=== PATIENT | female | born 1940 | race African-American/Black ===

== ENCOUNTER 2016-05-16 14:48 | Emergency (ER) | payer MEDICARE, OTHER ==
[~2016-05-16] VITALS: Ht 147.3 cm; Wt 99.8 kg
[~2016-05-16 14:48] MED LIST: ACET650T60 PO; ARIP30TA PO; ARIP5TAB6 PO; ASPI-482 PO; ASPI81TA44 PO; BENZ1TAB5 PO; CIPR250T30 PO; DOXY100T PO; FLUT1DIS3 IH; GABA-586 PO; GABA300S PO; HYDR-2666 PO; INSU100I13 SQ; INSU100I17 SQ; INSU100I27 SQ; INSU100V31 SQ; INSU100V8 SQ; LEVO750T31 PO; LISI10TA2 PO; LISI40TA PO; LURA40TA PO; PANT40TA3 PO; PANT40VI IV; PARO20TA2 PO; PARO20TA55 PO; POLY17PO5 PO; POLY500P14 MC; PRED20TA PO; PROAIR HFA8.5 GM IH; PROP40TA PO; WARF5TAB PO
--- NOTE | 2016-05-16 15:21 | PHYS DOC ---
Past Medical History Past Medical History: Arthritis, CHF, COPD, Depression, Diabetes-Type II, Hypertension, [place], Schizophrenia, TIA Additional Past Medical Histor: Heart murmur, tremors for the past 3+ years Past Surgical History: Hysterectomy Additional Past Surgical Histo: Hernia, cataract surgery, arm/elbow surgery Alcohol Use: Occasionally Drug Use: None Adult General Chief Complaint Chief Complaint: MECHANICAL FALL HPI HPI Patient is a 76 year old female who presents s/p fall. She comes via EMS from [facility]. Patient reports she was on her motorized scooter when she lost her balance and fell off, hitting her head. Unsure if LOC. She presents now with mild headache. Patient denies any other pain. She has not taken anything for pain as of yet. No other acute complaints. Review of Systems Review of Systems Constitutional: Denies fever or chills Respiratory: Denies cough or shortness of breath Cardiovascular: Denies chest pain GI: Denies abdominal pain, nausea, vomiting, or diarrhea Musculoskeletal: Denies back pain or joint pain Neurologic: Mild headache. Denies focal weakness or sensory changes Current Medications Current Medications Current Medications Medications (Trade) Dose Ordered Sig/Nithin Start Time Stop Time Status Last Admin Dose Admin Acetaminophen (Tylenol) 1,000 mg 1X ONCE 05/16/16 15:45 05/16/16 15:46 DC Allergies Allergies Allergies Coded Allergies Type Severity Reaction Last Updated Verified Penicillins Allergy Intermediate 05/06/15 Yes Tetanus Vaccines and Toxoid Allergy Intermediate 05/06/15 Yes ampicillin Allergy Intermediate Rash 05/06/15 Yes ibuprofen Allergy Intermediate 05/06/15 Yes Physical Exam Physical Exam Constitutional: Well developed, well nourished, no acute distress, non-toxic appearance HENT: Normocephalic, atraumatic, bilateral external ears normal Eyes: PERRL, EOMI, conjunctiva normal, no discharge Neck: Normal range of motion, no stridor. No midline TTP, no stepoff or deformity Cardiovascular: Heart rate normal, regular rhythm, no murmur Lungs & Thorax: Bilateral breath sounds clear to auscultation Abdomen: Bowel sounds normal, soft, non-distended, no TTP Skin: Warm, dry, no erythema, no rash Back: No midline tenderness, no stepoff or deformity Extremities: No obvious deformity, no edema Neurologic: Alert and oriented to person and place, GCS 15, CN II-XII grossly intact, strength symmetrical throughout, sensation to light touch intact throughout Current Patient Data Vital Signs Vital Signs Date Time Temp Pulse Resp B/P Pulse Ox O2 Delivery O2 Flow Rate FiO2 05/16/16 14:55 98.9 72 16 123/56 97 Room Air 98.9 EKG EKG EKG (my read): sinus rhythm, rate 71, borderline LAD, intervals wnl, no acute ischemic changes Radiology/Procedures Radiology/Procedures CT head/c-spine: IMPRESSION: 1. No acute intracranial finding or evidence of acute cervical spine trauma. 2. Scattered areas of hypodensity within the cerebral white matter, likely due to chronic small vessel disease. 3. Multilevel degenerative change of the cervical spine, swelling in stenosis as described above. 4. Cervical kyphosis and multilevel listhesis, degenerative in etiology. Course & Med Decision Making Course & Med Decision Making Pertinent Labs and Imaging studies reviewed. (See chart for details) Patient is 76 year old female who presents s/p apparent mechanical fall. No obvious serious injury on exam. Given age and c/o headache, will obtain CT head and c-spine to r/o serious injury. Dose of acetaminophen ordered for pain control. Imaging results as above, no acute injury noted. Discussed results with patient, who is feeling well at this time. Will discharge back to assisted living at this time with instructions for follow up and return precautions. Dragon Disclaimer Dragon Disclaimer This electronic medical record was generated, in whole or in part, using a voice recognition dictation system. Departure Departure Impression: Primary Impression: Fall from motorized mobility scooter Disposition: HOME, SELF-CARE Condition: STABLE Referrals: ELIE ARIZMENDI (PCP) Patient Instructions: Fall Prevention and Home Safety Additional Instructions: Thank you for allowing us to provide care today in the Emergency Department. Schedule a follow up appointment with your primary care doctor. Return promptly to the Emergency Department if you develop any new or concerning symptoms. STEFANIA MINER MD May 16, 2016 15:21
[2016-05-16] MEDS ORDERED: ACETAMINOPHEN 500 MG TABLET PO ONE (15:45)
--- NOTE | 2016-05-16 16:25 | RAD ---
EXAM: Head and cervical spine CT without contrast. HISTORY: Fall. TECHNIQUE: Computed tomographic images of the head and cervical spine were obtained without contrast. One or more of the following individualized dose reduction techniques were utilized for this examination: 1. Automated exposure control. 2. Adjustment of the mA and/or kV according to patient size. 3. Use of iterative reconstruction technique. COMPARISON: 03/18/2014. FINDINGS: The graft head: There is no acute or subacute hemorrhage. There is no mass effect or midline shift. There is no hydrocephalus. There are scattered areas of hypodensity within the cerebral white matter, likely due to chronic small vessel disease. There is cerebral and cerebellar atrophy. The orbits and mastoid air cells are unremarkable. There is mild paranasal sinus thickening. No calvarial lesion is seen. Cervical spine: There is moderate cervical kyphosis and slight listhesis at multiple levels. The vertebral bodies are normal in height. There is degenerative endplate remodeling with disc space narrowing predominantly at C5-C6. At C2-C3, there is a disc bulge. There is mild bilateral facet arthropathy. There is no stenosis. At C3-C4, there is a disc bulge and endplate remodeling. There is mild facet arthropathy. There is mild left foraminal stenosis. At C4-C5, there is a posterior disc protrusion superimposed on a disc bulge. There is mild facet arthropathy. There is no stenosis. At C5-C6, there is a posterior central disc osteophyte complex and posterior disc bulge and endplate remodeling. There is no stenosis. At C6-C7, there is a disc bulge and endplate bowing. There is no stenosis. IMPRESSION: 1. No acute intracranial finding or evidence of acute cervical spine trauma. 2. Scattered areas of hypodensity within the cerebral white matter, likely due to chronic small vessel disease. 3. Multilevel degenerative change of the cervical spine, swelling in stenosis as described above. 4. Cervical kyphosis and multilevel listhesis, degenerative in etiology.
[2016-05-16 17:00] VITALS: BP 111/70
--- NOTE | 2016-05-17 06:34 | EKG ---
[facility] [address] [place] [address] Test Date: 2016-05-16 Test Time: 15:28:08 Pat Name: HOMAR CLAUDIO Department: Room: Gender: F [employer]: : 1940 Requested By: STEFANIA MINER Order Number: [id number] Reading MD: Ismael Sibley Measurements Intervals [place] Rate: 71 P: 30 AR: 200 QRS: 4 QRSD: 66 T: 28 QT: 404 QTc: 439 Interpretive Statements SINUS RHYTHM Electronically Signed On 05-17-2016 10:43:39 CRM ADMINISTRATOR by Ismael Sibley
== END 2016-05-16 17:08 | disposition home or self-care (01) ==
LOC: ER 14:48
DX: R51 Headache (principal); M19.90 Unspecified osteoarthritis, unspecified site; I11.0 Hypertensive heart disease with heart failure; I50.9 Heart failure, unspecified; I25.2 Old myocardial infarction; E11.9 Type 2 diabetes mellitus without complications; J44.9 Chronic obstructive pulmonary disease, unspecified; F32.9 Major depressive disorder, single episode, unspecified; F20.9 Schizophrenia, unspecified; Z88.0 Allergy status to penicillin; Z86.73 Personal history of transient ischemic attack (TIA), and cerebral infarction without residual deficits; Z90.710 Acquired absence of both cervix and uterus; Z98.49 Cataract extraction status, unspecified eye; Z88.1 Allergy status to other antibiotic agents; Z88.7 Allergy status to serum and vaccine; Z88.8 Allergy status to other drugs, medicaments and biological substances; V00.831A Fall from motorized mobility scooter, initial encounter; Y93.89 Activity, other specified; Y92.89 Other specified places as the place of occurrence of the external cause; Y99.8 Other external cause status
CPT/HCPCS: 70450; 72125; 93005; 99284-25

== ENCOUNTER 2016-05-17 13:54 | Emergency (ER) | payer MEDICARE, OTHER ==
--- NOTE | 2016-05-17 15:32 | ED.ADGEN ---
Past Medical History Past Medical History: Arthritis, CHF, COPD, Depression, Diabetes-Type II, Hypertension, [place], Schizophrenia, TIA Additional Past Medical Histor: Heart murmur, tremors for the past 3+ years Past Surgical History: Hysterectomy Additional Past Surgical Histo: Hernia, cataract surgery, arm/elbow surgery Alcohol Use: Occasionally Drug Use: None Adult General Chief Complaint Chief Complaint: MECHANICAL FALL HPI HPI Patient is a 76 year old female sent to the emergency department by ambulance for left wrist pain and a second fall in as many days. Patient denies any other complaints but states that she does feel like she is searching a bit for her words. She states that she can remember the fall from today but does not know why she fell. Report from the long-term is that this patient is usually very alert and interactive. Patient reports that she has been wearing her oxygen and taken her medications as directed. Review of Systems Review of Systems Constitutional: Denies fever or chills. [] Eyes: Denies change in visual acuity. [] HENT: Denies nasal congestion or sore throat. [] Respiratory: Denies cough or shortness of breath. [] Cardiovascular: Denies chest pain or edema. [] GI: Denies abdominal pain, nausea, vomiting, bloody stools or diarrhea. [] : Denies dysuria. [] Musculoskeletal: Denies back pain or joint pain. [] Integument: Denies rash. [] Neurologic: Denies headache, focal weakness or sensory changes. [] Endocrine: Denies polyuria or polydipsia. [] Lymphatic: Denies swollen glands. [] Psychiatric: Denies depression or anxiety. [] Allergies Allergies Allergies Coded Allergies Type Severity Reaction Last Updated Verified Penicillins Allergy Intermediate 05/06/15 Yes Tetanus Vaccines and Toxoid Allergy Intermediate 05/06/15 Yes ampicillin Allergy Intermediate Rash 05/06/15 Yes ibuprofen Allergy Intermediate 05/06/15 Yes Physical Exam Physical Exam Constitutional: Well developed, well nourished, no acute distress, non-toxic appearance. [] HENT: Normocephalic, atraumatic, bilateral external ears normal, oropharynx moist, no oral exudates, nose normal. [] Eyes: PERRLA, EOMI, conjunctiva normal, no discharge. [] Neck: Normal range of motion, no tenderness, supple, no stridor. [] Cardiovascular:Heart rate regular rhythm, no murmur [] Lungs & Thorax: Bilateral breath sounds clear to auscultation [] Abdomen: Bowel sounds normal, soft, no tenderness, no masses, no pulsatile masses. [] Skin: Warm, dry, no erythema, no rash. [] Back: No tenderness, no CVA tenderness. [] Extremities: Left distal wrist is tender to palpation with edema and deformity, neurovascularly intact [] Neurologic: Alert and oriented X 3, normal motor function, normal sensory function, no focal deficits noted. [] Psychologic: Affect normal, judgement normal, mood normal. [] Current Patient Data Vital Signs Vital Signs Date Time Temp Pulse Resp B/P Pulse Ox O2 Delivery O2 Flow Rate FiO2 05/17/16 19:15 80 18 136/58 98 Nasal Cannula 2 05/17/16 13:54 98.9 98.9 Lab Values Laboratory Tests Test 05/17/16 15:28 05/17/16 16:11 05/17/16 16:40 O2 Saturation 91% (92-99) L Arterial Blood pH 7.32 (7.35-7.45) L Arterial Blood pCO2 at Patient Temp 49mmHg (35-46) H Arterial Blood pO2 at Patient Temp 71mmHg (65-108) Arterial Blood HCO3 25mmol/L (21-28) Arterial Blood Base Excess -2mmol/L (-3-3) FiO2 30% Urine Collection Type U cath Urine Color Dk yellow Urine Clarity Clear Urine pH 5.0 Urine Specific [place] 1.025 Urine Protein Negativemg/dL (NEG-TRACE) Urine Glucose (UA) Negativemg/dL (NEG) Urine Ketones (Stick) Negativemg/dL (NEG) Urine Blood Negative (NEG) Urine Nitrite Negative (NEG) Urine Bilirubin Small (NEG) Urine Urobilinogen Dipstick 1.0mg/dL (0.2 mg/dL) Urine Leukocyte Esterase Negative (NEG) Urine RBC Occ/HPF (0-2) Urine WBC 1-4/HPF (0-4) Urine Squamous Epithelial Cells Many/LPF Urine Bacteria Few/HPF (0-FEW) Urine Hyaline Casts Many/HPF Urine Mucus Marked/LPF Urine Opiates Screen Pos (NEG) Urine Methadone Screen Neg (NEG) Urine Barbiturates Neg (NEG) Urine Phencyclidine Screen Neg (NEG) Urine Amphetamine/Methamphetamine Neg (NEG) Urine Benzodiazepines Screen Neg (NEG) Urine Cocaine Screen Neg (NEG) Urine Cannabinoids Screen Neg (NEG) Urine Ethyl Alcohol Neg (NEG) White Blood Count 9.9x10^3/uL (4.0-11.0) Red Blood Count 4.23x10^6/uL (3.50-5.40) Hemoglobin 11.1g/dL (12.0-15.5) L Hematocrit 33.0% (36.0-47.0) L Mean Corpuscular Volume 78fL (79-100) L Mean Corpuscular Hemoglobin 26pg (25-35) Mean Corpuscular Hemoglobin Concent 34g/dL (31-37) Red Cell Distribution Width 17.4% (11.5-14.5) H Platelet Count 288x10^3/uL (140-400) Neutrophils (%) (Auto) 69% (31-73) Lymphocytes (%) (Auto) 19% (24-48) L Monocytes (%) (Auto) 10% (0-9) H Eosinophils (%) (Auto) 1% (0-3) Basophils (%) (Auto) 1% (0-3) Neutrophils # (Auto) 6.8x10^3uL (1.8-7.7) Lymphocytes # (Auto) 1.9x10^3/uL (1.0-4.8) Monocytes # (Auto) 1.0x10^3/uL (0.0-1.1) Eosinophils # (Auto) 0.1x10^3/uL (0.0-0.7) Basophils # (Auto) 0.1x10^3/uL (0.0-0.2) Prothrombin Time 14.4SEC (11.7-14.0) H Prothrombin Time INR 1.2 (0.8-1.1) H PTT 27SEC (24-38) Sodium Level 142mmol/L (136-145) Potassium Level 4.4mmol/L (3.5-5.1) Chloride Level 105mmol/L (98-107) Carbon Dioxide Level 28mmol/L (21-32) Anion Gap 9 (6-14) Blood Urea Nitrogen 34mg/dL (7-20) H Creatinine 2.0mg/dL (0.6-1.0) H Estimated GFR (Cockcroft-Gault) 29.5 Glucose Level 157mg/dL (70-99) H Calcium Level 8.8mg/dL (8.5-10.1) Total Bilirubin 0.4mg/dL (0.2-1.0) Direct Bilirubin 0.1mg/dL (0.0-0.2) Aspartate Amino Transferase (AST) 17U/L (15-37) Alanine Aminotransferase (ALT) 21U/L (14-59) Alkaline Phosphatase 67U/L (46-116) Troponin I Quantitative < 0.017ng/mL (0.000-0.055) RC-Dfn-B-Type Natriuretic Peptide 28pg/mL (0-124) Total Protein 7.6g/dL (6.4-8.2) Albumin 3.4g/dL (3.4-5.0) Ethyl Alcohol Level < 10mg/dL (0-10) Laboratory Tests 05/17/16 16:40 Laboratory Tests 05/17/16 16:40 EKG EKG [] Radiology/Procedures Radiology/Procedures Exam performed: 3 views left wrist. History: Wrist pain, status post fall one month ago. Date of service: 05/17/16. Comparison: None available 3 views left wrist findings: There is a impacted healing fracture distal left radius and ulnar styloid process. There is extensive soft tissue swelling. No foreign body. Impression: Impacted healing distal radial fracture with fracture ulnar styloid process. Exam performed: CT scan of the head without contrast. Date of Service: 05/17/16. Comparison: CT head without contrast from 05/16/16. Clinical History: Altered mental status, patient fell yesterday and today. Technique: Helical acquisitions are obtained from the foramen magnum to the vertex without intravenous administration of contrast. Findings: There is prominence of cortical sulci and ventricular system compatible with age related atrophy. There are areas of low-attenuation in both periventricular deep white matter suggesting small vessel ischemic changes. Normal rooney-white differentiation is maintained. There is no extra axial fluid collection, intraparenchymal hemorrhage or mass lesion. The visualized portions of the orbits, paranasal sinuses and the mastoid air cells appear clear. The calvarium is intact. Impression: 1. Age-appropriate atrophy without any acute intracranial process. 2. No acute intracranial process detected Exam performed: One view chest History: Right-sided chest pain. Date of service: 05/17/16. Comparison: View chest from 04/06/16. Single AP upright portable view chest findings: Heart size is enlarged. The pulmonary vascularity is congested. Coarse prominent interstitial markings are seen in both lungs mainly in a perihilar distribution. No focal infiltrates or pleural effusions seen. Bones are normal Impression: Cardiomegaly with low-grade CHF. DICTATED and SIGNED BY: ABDIAS ROSE MD DATE: 05/17/16 1550 CC: NAN BARRIOS MD; NO PCP ~[] Course & Med Decision Making Course & Med Decision Making Pertinent Labs and Imaging studies reviewed. (See chart for details) The patient's mental status continues to improve and clear during her visit. I do suspect that she had too much of her opioid medications today. Her left wrist does show a healing distal radial fracture. When questioned, the patient notes that she did fall and hurt her wrist several weeks ago but did tell anyone. At this point the wrist has had a fair amount of healing. We will go ahead and place her in a splint and refer her to orthopedics although I fear that it may be too late for them to intervene. [] Dragon Disclaimer Dragon Disclaimer This electronic medical record was generated, in whole or in part, using a voice recognition dictation system. NAN BARRIOS MD May 17, 2016 15:32
--- NOTE | 2016-05-17 15:57 | RAD ---
Exam performed: One view chest History: Right-sided chest pain. Date of service: 05/17/16. Comparison: View chest from 04/06/16. Single AP upright portable view chest findings: Heart size is enlarged. The pulmonary vascularity is congested. Coarse prominent interstitial markings are seen in both lungs mainly in a perihilar distribution. No focal infiltrates or pleural effusions seen. Bones are normal Impression: Cardiomegaly with low-grade CHF.
--- NOTE | 2016-05-17 16:00 | RAD ---
Exam performed: 3 views left wrist. History: Wrist pain, status post fall one month ago. Date of service: 05/17/16. Comparison: None available 3 views left wrist findings: There is a impacted healing fracture distal left radius and ulnar styloid process. There is extensive soft tissue swelling. No foreign body. Impression: Impacted healing distal radial fracture with fracture ulnar styloid process.
--- NOTE | 2016-05-17 16:01 | RAD ---
Exam performed: CT scan of the head without contrast. Date of Service: 05/17/16. Comparison: CT head without contrast from 05/16/16. Clinical History: Altered mental status, patient fell yesterday and today. Technique: Helical acquisitions are obtained from the foramen magnum to the vertex without intravenous administration of contrast. Findings: There is prominence of cortical sulci and ventricular system compatible with age related atrophy. There are areas of low-attenuation in both periventricular deep white matter suggesting small vessel ischemic changes. Normal rooney-white differentiation is maintained. There is no extra axial fluid collection, intraparenchymal hemorrhage or mass lesion. The visualized portions of the orbits, paranasal sinuses and the mastoid air cells appear clear. The calvarium is intact. Impression: 1. Age-appropriate atrophy without any acute intracranial process. 2. No acute intracranial process detected PQRS Compliance Statement: One or more of the following individualized dose reduction techniques were utilized for this examination: 1. Automated exposure control 2. Adjustment of the mA and/or kV according to patient size 3. Use of iterative reconstruction technique
[2016-05-17 16:24] LABS: BILIRUBIN,URINE SMALL (NEG); GLUCOSE,URINE NEGATIVE (NEG); NITRITE,URINE NEGATIVE (NEG); PROTEIN,URINE NEGATIVE (NEG-TRACE)
[2016-05-17 16:31] LABS: BARBITURATES NEG (NEG); BENZODIAZEPINES NEG (NEG); CANNABINOIDS NEG (NEG); COCAINE NEG (NEG); METHADONE NEG (NEG); OPIATES POS (NEG); PHENCYCLIDINE NEG (NEG)
[2016-05-17 16:33] LABS: HCO3 ABG 25 mmol/L (21-28); PCO2 ABG 49 mmHg (35-46); PH ABG 7.32 (7.35-7.45); PO2 ABG 71 mmHg (65-108); SAT O2 ABG 91 % (92-99)
[2016-05-17 16:34] LABS: BACTERIA,URINE FEW /HPF (0-FEW); ETHANOL, URINE NEG (NEG); RBC,URINE OCC /HPF (0-2); SQUAMOUS EPITHELIAL CELL,UR MANY /LPF
[2016-05-17 16:48] LABS: BASO # 0.1 x10^3/uL (0.0-0.2); BASO % 1 % (0-3); EOS % 1 % (0-3); HEMOGLOBIN 11.1 g/dL (12.0-15.5); LYMPH # 1.9 x10^3/uL (1.0-4.8); LYMPH % 19 % (24-48); MEAN CORPUSCULAR HEMOGLOBIN 26 pg (25-35); MEAN CORPUSCULAR HGB CONC 34 g/dL (31-37); MEAN CORPUSCULAR VOLUME 78 fL (79-100); MONO % 10 % (0-9); NEUT % 69 % (31-73); PLATELET COUNT 288 x10^3/uL (140-400); RED BLOOD COUNT 4.23 x10^6/uL (3.50-5.40); RED CELL DISTRIBUTION WIDTH 17.4 % (11.5-14.5); WHITE BLOOD COUNT 9.9 x10^3/uL (4.0-11.0)
[2016-05-17 16:57] LABS: CALCIUM 8.8 mg/dL (8.5-10.1); GFR 29.5; POTASSIUM 4.4 mmol/L (3.5-5.1)
[2016-05-17 16:59] LABS: INR 1.2 (0.8-1.1); PROTHROMBIN TIME PATIENT 14.4 SEC (11.7-14.0)
[2016-05-17 17:04] LABS: DIRECT BILIRUBIN 0.1 mg/dL (0.0-0.2); TOTAL BILIRUBIN 0.4 mg/dL (0.2-1.0); TOTAL PROTEIN 7.6 g/dL (6.4-8.2)
[2016-05-17 17:06] LABS: FIO2 ABG 30%
[2016-05-17 17:18] LABS: ALBUMIN 3.4 g/dL (3.4-5.0)
--- NOTE | 2016-05-17 17:57 | EKG ---
[facility] [address] [place] [address] Test Date: 2016-05-17 Test Time: 16:02:26 Pat Name: HOMAR CLAUDIO Department: Room: Gender: F Sheep [employer]er: : 1940 Requested By: NAN BARRIOS Order Number: [id number] Reading MD: Ismael Sibley Measurements Intervals [place] Rate: 95 P: IN: QRS: 42 QRSD: 68 T: 112 QT: 358 QTc: 453 Interpretive Statements BASELINE ARTIFACT. CANNOT DETERMINE UNDERLYING RHYTHM, SUSPECT SINUS NORMAL AXIS NO SIGNIFICANT ST/T CHANGES RECOMMEND REPEAT EKG Electronically Signed On 05-18-2016 7:44:18 CHIROPRACTIC CARE by Ismael Sibley
[2016-05-17 19:15] VITALS: BP 136/58
== END 2016-05-17 20:36 | disposition home or self-care (01) ==
LOC: ER 13:54
DX: S52.592D Other fractures of lower end of left radius, subsequent encounter for closed fracture with routine healing (principal); S52.612D Displaced fracture of left ulna styloid process, subsequent encounter for closed fracture with routine healing; M19.90 Unspecified osteoarthritis, unspecified site; I11.0 Hypertensive heart disease with heart failure; I50.9 Heart failure, unspecified; J44.9 Chronic obstructive pulmonary disease, unspecified; F32.9 Major depressive disorder, single episode, unspecified; E11.9 Type 2 diabetes mellitus without complications; I25.2 Old myocardial infarction; F20.9 Schizophrenia, unspecified; Z86.73 Personal history of transient ischemic attack (TIA), and cerebral infarction without residual deficits; Z88.0 Allergy status to penicillin; Z88.1 Allergy status to other antibiotic agents; Z88.7 Allergy status to serum and vaccine; Z88.8 Allergy status to other drugs, medicaments and biological substances; W18.39XA Other fall on same level, initial encounter; Y93.89 Activity, other specified; Y92.89 Other specified places as the place of occurrence of the external cause; Y99.8 Other external cause status
CPT/HCPCS: 29125; 36415; 36600; 70450; 71010; 73110; 80048; 80076; 81001; 82805; 83880; 84484; 85027; 85610; 85730; 93005; 99285; G0480; G0481